=== PATIENT | male | born 1995 | race Caucasian/White ===

== ENCOUNTER 2022-03-15 10:31 | Emergency (ER) | payer OTHER ==
[~2022-03-15] VITALS: Ht 175.3 cm; Wt 97.7 kg
[2022-03-15 10:53] VITALS: TEMP 98.7
[2022-03-15 11:01] LABS: COLLECTION METHOD CLEAN CATCH
[2022-03-15 11:10] LABS: PH 6 (5-8); SQUAMOUS EPITHELIAL None Seen /hpf (0-10); URINE APPEARANCE Clear (CLEAR/HAZY); URINE BACTERIA Rare /hpf (NONE SEEN); URINE BILIRUBIN Negative (NEGATIVE); URINE BLOOD 1+ (NEGATIVE); URINE COLOR Straw (YELLOW); URINE GLUCOSE Negative (NEGATIVE); URINE KETONE Negative (NEGATIVE); URINE LEUKOCYTE ESTERASE Negative (NEGATIVE); URINE NITRATE Negative (NEGATIVE); URINE PROTEIN(semi-quant) Negative (NEGATIVE); URINE RBC 0-2 /hpf (0-2); URINE UROBILINOGEN Negative (NEGATIVE)
[2022-03-15 11:15] LABS: BASO # 0.1 K/mm3 (0.0-0.2); BASO % 0.3 % (0.0-2.0); EOS % 0.1 % (0.0-4.0); GRAN # 12.4 K/mm3 (1.4-6.5); HEMATOCRIT 46.3 % (42.0-52.0); HEMOGLOBIN 16.2 g/dl (13.5-18.0); LYMPH # 1.2 K/mm3 (1.2-3.4); LYMPH % 8.1 % (20.0-51.0); MEAN CELL VOLUME 91 fl (80.0-100.0); MEAN CORPUSCULAR HEMOGLOBIN 32 pg (27-31); MEAN CORPUSCULAR HGB CONC 35 g/dl (33.0-37.0); MEAN PLATELET VOLUME 9.4 fl (7.4-10.4); MONO # 1.2 K/mm3 (0.1-0.6); MONO % 8.1 % (1.7-9.3); PLATELET COUNT 295 K/mm3 (130-400); RED BLOOD COUNT 5.11 M/mm3 (4.20-5.60); REDCELL DISTRIBUTION WIDTH-CV 12.7 % (11.5-14.5)
[2022-03-15 11:35] LABS: ALBUMIN 4.5 gm/dL (3.5-5.0); BILIRUBIN,TOTAL 0.6 mg/dL (0.2-1.2); CREATININE, serum 1.73 mg/dL (0.72-1.25); TOTAL PROTEIN 7.4 gm/dL (6.2-8.1)
[2022-03-15 12:40] LABS: C-REACTIVE PROTEIN 0.37 mg/dL (0.00-0.50)
[2022-03-15 14:31] VITALS: BP 133/84; PULSE 62
== END 2022-03-15 14:32 | disposition home or self-care (01) ==
LOC: COL.ER 10:31
PROVIDERS: Nurse Practitioner Primary Care
DX: E86.0 Dehydration (principal); R79.89 Other specified abnormal findings of blood chemistry; Z87.891 Personal history of nicotine dependence
CPT/HCPCS: J1885; J2405; J7030